=== PATIENT | female | born 1975 | race Caucasian/White ===

== ENCOUNTER 2018-01-12 11:39 | Emergency (ER) | payer SELFPAY ==
[~2018-01-12] VITALS: Ht 160 cm; Wt 63.5 kg
[~2018-01-12 11:39] MED LIST: CLINDAMYCIN150 MG PO; FLEXERIL5 MG PO; FLONASE ALLERG9.9 ML NAS; HYDROCODONE BIT1 T11 PO; NKHM PO; PREDNICOT20 MG PO; PREDNISONE10 MG PO; ROBITUSSIN AC 110 ML PO; ULTRAM50 MG PO; ZOLOFT100 MG PO
[2018-01-12] MEDS ORDERED: AUGMENTIN 875875 MG PO (12:08)
[2018-01-12] MEDS ORDERED: NAPROSYN500 MG PO (12:08)
== END 2018-01-12 12:12 | disposition home or self-care (01) ==
LOC: ED 11:39
DX: J01.90 Acute sinusitis, unspecified (principal); F17.200 Nicotine dependence, unspecified, uncomplicated; Z90.710 Acquired absence of both cervix and uterus; Z98.890 Other specified postprocedural states; Z79.899 Other long term (current) drug therapy

== ENCOUNTER → 2020-09-07 | Outpatient (CLI) | payer BC ==
[~2020-09-07] MED LIST changes: +AUGMENTIN 875875 MG PO; +NAPROSYN500 MG PO
== END | disposition home or self-care (01) ==
LOC: COVID19 10:50
PROVIDERS: ATTEND Family Medicine
DX: Z20.828 Contact with and (suspected) exposure to other viral communicable diseases (principal)

== ENCOUNTER → 2020-09-10 | Outpatient (CLI) | payer BC | END | disposition home or self-care (01) | LOC: COVID19 14:28 | PROVIDERS: ATTEND Family Medicine | DX: Z20.828 Contact with and (suspected) exposure to other viral communicable diseases (principal) ==

== ENCOUNTER 2025-09-02 18:07 | Emergency (ER) | payer OTHER ==
[~2025-09-02] VITALS: Ht 160 cm; Wt 59.0 kg
[2025-09-02] MEDS ORDERED: Motrin,Rufen800 MG PO (19:02)
[2025-09-02] MEDS ORDERED: IBUPROFEN 800 MG TAB PO ONE (19:05)
[2025-09-02] MEDS ORDERED: PREDNISONE20 M1 PO (19:42)
== END 2025-09-02 19:05 | disposition home or self-care (01) ==
LOC: ED 18:07
DX: M54.32 Sciatica, left side (principal); F32.A Depression, unspecified; Z90.710 Acquired absence of both cervix and uterus